=== PATIENT | female | born 1985 | race Caucasian/White ===

== ENCOUNTER 2018-02-01 07:00 | Inpatient (IN) | payer OTHER ==
[~2018-02-01] VITALS: Ht 162.6 cm; Wt 118.4 kg
[~2018-02-01 07:00] MED LIST: ACETAMINOPHEN500 M4 PO; BENADRYL25 MG PO; PROAIR HFA8.5 GM INH
[2018-02-02 07:54] LABS: ABSOLUTE BASOPHIL COUNT 0 /CUMM (0.0-0.2); ABSOLUTE EOSINOPHIL COUNT 0.1 /CUMM (0.0-0.7); ABSOLUTE GRANULOCYTE CT 7.6 /CUMM (1.4-6.5); ABSOLUTE LYMPH COUNT 1.6 /CUMM (1.2-3.4); ABSOLUTE MONOCYTE COUNT 0.5 /CUMM (0.10-0.60); BASOPHIL % 0.2 % (0.0-2.0); GRANULOCYTE % 77.8 % (42.2-75.2); MEAN CORPUSCULAR HGB 25.5 PG (27.0-31.0); MEAN CORPUSCULAR HGB CONC 32.5 G/DL (33.0-37.0); MEAN CORPUSCULAR VOLUME 78.5 FL (81.0-99.0); MEAN PLATELET VOLUME 8.9 FL (7.4-10.4); PLATELET COUNT 215 /CUMM (130-400); RBC DISTRIBUTION WIDTH 13.4 % (11.5-14.5); RED BLOOD CELL CT 3.43 /CUMM (4.20-5.40); WHITE BLOOD CELL COUNT 9.8 /CUMM (4.8-10.8)
[2018-02-02 08:28] LABS: HEMATOCRIT 26.9 % (37-47)
--- NOTE | 2018-02-03 11:25 | Operative Report ---
Operative/Inv Procedure Report Surgery Date: 02/01/18 Name of Procedure: Repeat elective Pre-Operative Diagnosis: 39 week previous Post-Operative Diagnosis: Same Estimated Blood Loss: 800 mL Surgeon/Media Aid: Elena Portillo MD,George Finn M.D. Anesthesia: spinal Operative/Procedure Note Note: The patient was brought to the operating room placed on the OR table in the sitting position where she underwent spinal anesthetic without complication. She was repositioned in the modified dorsal supine with a block under her right period of the pneumoboots were placed and activated and a Gonzales catheter was placed into the bladder and drained clear yellow urine. The abdomen was prepped and draped in usual sterile fashion and tested. A Pfannenstiel skin incision was made over the old scar and taken down to the layer of the fascia. The fascia was nicked in the midline and extended bilaterally. The underlying rectus muscles are in the perineal cavity was entered sharply. Mcdermitt bladder blade was inserted to protect the bladder from the operative field. A bladder flap was created using Metzenbaum scissors and a low transverse uterine incision was made with the scalpel. Uterus was entered and membranes were ruptured revealing clear fluid a liveborn infant was delivered atraumatically and handed off to the waiting tool grinder set up operator gear. The placenta was then manually removed intact with three-vessel cord. The uterus was exteriorized and wiped clean with a wet lap sponge. The uterine incision was closed in 2 layers of 0 Polysorb the second imbricating the first. The abdomen and pelvis were copiously irrigated and the uterus placed back into the abdominal cavity and suture line was once again visualized and noted to be hemostatic. Rectus muscles were reapproximated using 0 Polysorb. The fascia was closed using 0 Polysorb in a running nonlocking fashion. The subcutaneous tissues were irrigated and coagulated were needed. Skin was closed using redd. A dry sterile dressing was applied to the wound. The patient was sent to recovery in good condition. All needle, sponge, and instrument counts were correct at the end of the procedure 2.
--- NOTE | 2018-02-03 11:26 | PN- Post Delivery/GYN ---
Subjective Subjective: Difficult breast-feeding Review of Systems: Negative Objective Last 24 Hrs of Vital Signs/I&O Vital signs stable afebrile Physical Exam: Incision clean dry and intact Extremities nontender Assessment/Plan Assessment/Plan Postoperative day 2 status post repeat elective Plan: Discharge tomorrow Problem List: 1.
[2018-02-03] MEDS ORDERED: IBUPROFEN800 M1 PO (23:37)
[2018-02-03] MEDS ORDERED: DOCUSATE SODIU100 M3 PO (23:37)
[2018-02-04] MEDS ORDERED: PERCOCET 5-3251 EACH PO (10:56)
== END 2018-02-04 12:00 | DRG 766 ==
LOC: GNO 09:43
PROVIDERS: Obstetrics & Gynecology
PROC: 10D00Z1 Extraction of Products of Conception, Low, Open Approach (ICD-10-PCS; principal; 2018-02-01)
DX: O34.211 Maternal care for low transverse scar from previous cesarean delivery (principal); O99.214 Obesity complicating childbirth; N85.8 Other specified noninflammatory disorders of uterus; Z3A.39 39 weeks gestation of pregnancy; Z37.0 Single live birth; Z68.35 Body mass index [BMI] 35.0-35.9, adult
CPT/HCPCS: GNOS; 87086; J0690; J1650; J1885; J2550; J7120